=== PATIENT | male | born 1970 | race Caucasian/White ===

== ENCOUNTER 2017-12-25 11:31 | Outpatient (CLI) | payer OTHER | END 2017-12-25 17:00 | disposition home or self-care (01) | LOC: RAD 11:31 | DX: M50.122 Cervical disc disorder at C5-C6 level with radiculopathy (principal) ==

== ENCOUNTER 2019-03-02 11:01 | Outpatient (CLI) | payer OTHER | END 2019-03-02 11:40 | disposition home or self-care (01) | LOC: RAD 501 11:01 | DX: R06.02 Shortness of breath (principal) ==